=== PATIENT | female | born 1995 | race African-American/Black ===

== ENCOUNTER 2024-03-26 09:25 | Observation (INO) | payer BC, SELFPAY ==
[2024-03-26 11:00] VITALS: BMI 23.3
--- NOTE | 2024-03-26 11:23 | OBADM ---
This patient, Courtney lSade, admitted to the OB room Labor/Delivery/Recovery 108 for observation. Patient/family oriented to hospital policies and general routines including ID bracelet, bed and alarms, visiting hours, pain management, procedures, bathroom and other care routines, personal items, smoking policy, room service/diet, and visiting hours. Patient/Family are encouraged to report perceived risks to care and to ask questions if they do not understand what they are told or what they should do.
--- NOTE | 2024-03-26 11:57 | PC.NURSE ---
1101- Dr. Mendoza called regarding patient's arrival on unit with complaints of moises. Patient moises 2-5 min and reactive NST. SVE unchanged. Orders received to discharge patient. Appt with provider on Wednesday.
--- NOTE | 2024-03-27 11:20 | PM.OBTRLD ---
OB - Triage/Final Diagnosis Visit Information Reason for evaluation: threatened labor Comments/Additional reasons for admission: I have assessed the risk for this patient, Courtney Alaina Oliverais, and determined that she would benefit from observation care.
== END 2024-03-26 11:28 | disposition home or self-care (01) ==
PROVIDERS: Admitting Provider Obstetrics & Gynecology; Visit Provider Obstetrics & Gynecology
DX: O47.1 False labor at or after 37 completed weeks of gestation (principal); Z3A.39 39 weeks gestation of pregnancy
CPT/HCPCS: G0378; G0379

== ENCOUNTER 2024-04-01 19:13 | Inpatient (IN) | payer BC, SELFPAY ==
[2024-04-01] VITALS (60 sets, daily range): BP systolic 67–131; BP diastolic 43–99; PULSE 46–200; TEMP 36.9–37.8; O2SAT 81–100; BMI 24.5
[2024-04-01] MEDS: AMPICILLIN 2 GM/NS 100 ML 2 GM/100 ML BAG IVPB (20:42)
[2024-04-01] MEDS: LACTATED RINGERS 1,000 ML 125 ML IV CONT ×2 (20:42→22:10)
[2024-04-01] MEDS: ACETAMINOPHEN 500 MG TABLET 1000 MG PO (20:43)
[2024-04-01 20:53] LABS: Basophils Percent Auto 0.4 % (0.2-1.2); Eosinophils Percent Auto 0.3 % (0-4.4); Hematocrit 35.2 % (37.0-47.0); Hemoglobin 11.7 g/dL (12.0-15.0); Immature Granulocyte Absolute 0.06 K/mm3 (0.00-0.031); Immature Granulocyte Percent A 0.6 % (0-0.5); Lymphocytes Absolute Auto 2.18 K/mm3 (0.9-3.2); Lymphocytes Percent Auto 21.6 % (18.3-44.2); Mean Corpuscular HGB Conc 33.2 g/dl (32-36); Mean Corpuscular Hemoglobin 27.9 pg (26-34); Mean Corpuscular Volume 83.8 fl (80-100); Mean Platelet Volume 11.9 fl (7.4-10.4); Monocytes Absolute Auto 0.5 K/mm3 (0.1-0.6); Monocytes Percent Auto 5.3 % (2.6-8.5); Neutrophils Absolute Auto 7.3 K/mm3 (1.3-6.7); Neutrophils Percent Auto 71.8 % (45.5-73.1); Platelet Count Result 226 k/mm3 (150-375); Red Cell Distribution Width 13.7 % (11.5-14.5); White Blood Count 10.1 K/mm3 (4.5-10.0)
--- NOTE | 2024-04-01 21:06 | LDADM ---
This patient, Courtney Slade, was admitted to Labor/Delivery/Recovery 104 on 04/01/24 at 19:13. Plans for labor, pain management and were discussed with patient. Patient/family oriented to hospital policies and general routines including ID bracelet, bed and alarms, visiting hours, pain management, procedures, bathroom and other care routines, personal items, smoking policy, room service/diet and guest tray routines, security routines, and visiting hours. Patient/Family are encouraged to report perceived risks to care and to ask questions if they do not understand what they are told or what they should do. See OBIX for further documentation.
[2024-04-01 21:29] LABS: Rapid Plasma Reagin Non-Reactive (NonReactive)
[2024-04-01] MEDS: ONDANSETRON INJ 4 MG/2 ML VIAL IV PUSH (21:35)
[2024-04-01 21:44] LABS: HIV 1/2 Ab P24 Ag Result Negative (Negative)
--- NOTE | 2024-04-01 22:15 | P.PNAN_ITS ---
Anes - Initial Pre Proc Eval Date/Time: 04/01/24 22:15 Surgeon: Gigi Mendoza MD Pre Op Diagnosis: Contractions Patient Data Age: 28 Gender: F Height: Weight: Last Vital Signs Temp 36.9 C 04/01/24 22:08 Pulse 200 H 04/01/24 22:14 BP 114/99 H 04/01/24 22:14 Pulse Ox 100 04/01/24 22:13 O2 Del Method Room Air 04/01/24 21:01 Allergies Allergy/AdvReac Type Severity Reaction Status Date / Time mushroom Allergy Swelling Verified 03/20/24 13:22 Home Medications Medication Instructions Recorded Confirmed Type metoclopramide HCl 10 mg tablet 10 mg PO Q6H PRN nausea and 10/08/23 03/29/24 Rx (Reglan) vomiting #80 tabs vits no.126-ferrous fum 1 tablet PO DAILY #90 tabs 11/04/23 03/29/24 Rx 28 mg iron-folic acid 800 mcg tablet (Classic ) Laboratory Tests 04/01/24 20:40 WBC 10.1 H K/mm3 (4.5-10.0) RBC 4.20 M/mm3 (4.2-5.4) Hgb 11.7 L g/dL (12.0-15.0) Hct 35.2 L % (37.0-47.0) MCV 83.8 fl (80-100) MCH 27.9 pg (26-34) MCHC 33.2 g/dl (32-36) RDW 13.7 % (11.5-14.5) Plt Count 226 k/mm3 (150-375) MPV 11.9 H fl (7.4-10.4) Immature Gran % (Auto) 0.6 H % (0-0.5) Neut % (Auto) 71.8 % (45.5-73.1) Lymph % (Auto) 21.6 % (18.3-44.2) [place] % (Auto) 5.3 % (2.6-8.5) Eos % (Auto) 0.3 % (0-4.4) Baso % (Auto) 0.4 % (0.2-1.2) Lymph # (Auto) 2.18 K/mm3 (0.9-3.2) [place] # (Auto) 0.5 K/mm3 (0.1-0.6) Eos # (Auto) 0.0 K/mm3 (0-0.3) Baso # (Auto) 0.0 K/mm3 (0.0-0.1) Abs Immat Gran (auto) 0.06 H K/mm3 (0.00-0.031) Absolute Neuts (auto) 7.3 H K/mm3 (1.3-6.7) Absolute Nucleated RBC 0.000 K/mm3 (0.0-0.012) Nucleated RBC % 0.0 % (0.0-0.2) RPR Non-reactive (NonReactive) HIV 1&2 Ab/P24 Ag 4thGn Negative (Negative) Blood Type A Positive Antibody Screen Negative Patient hx anesthesia problems: none Family hx anesthesia problems: none Results Review: All pre-operative results and documents have been reviewed as part of the pre- operative evaluation. [facility] Past Medical History Medical History Femur open fracture, left Suppression of menses Surgical History Surgical History Hx of appendectomy Family History Family History Grandparent Diabetes mellitus Hypertension Breast cancer Social History Social History Smoking status: Current every day smoker Tobacco type: e-cigarettes/vaping Second hand tobacco smoke exposure: No Alcohol intake: never Substance use: never Substance use type: marijuana Do You Feel Safe in your Home?: Yes Lack of Transportation: No Lack of Food: Never True Current Housing: I Have Housing Concerned About Future Housing: No Difficulty Paying Gas/Electric Bills: No Difficulty Paying for Meds: No Currently Unemployed: No Education: High School Diploma/GED Difficulty w/ Childcare or Family Care: No Living arrangements: alone Occupation/Education: occupation Gender identity (if verbalized by the patient): Female Spiritual care concerns: No Anes - Eval Final PreProcedure Day of Procedure 04/01/24 22:15 Patient weight: normal Neurological: alert and oriented ASA classification: II Emergent: no Anesthetic plan: proceed Anesthesia type and monitoring: regional epidural and standard monitoring Results Review: All pre-operative results and documents have been reviewed as part of the pre- operative evaluation. Informed Consent: The patient's anesthetic plan and its attendant risks and benefits were discussed with the patient/family/POA. Questions were solicited and answers provided to the satisfaction of the patient/family/POA.
[2024-04-01] MEDS: OXYTOCIN 30 UNITS/NS 500 ML 30 UNITS/500 ML BAG IV CONT (22:57)
[2024-04-01] MEDS: PHENYLEPHRINE 1,000 MCG/10 ML SYRINGE 100 MCG IV PUSH (23:10)
[2024-04-02] VITALS (363 sets, daily range): BP systolic 84–207; BP diastolic 28–163; PULSE 50–150; RESP 18; TEMP 36.3–37.1; O2SAT 78–100
[2024-04-02] MEDS: AMPICILLIN 1 GM/NS 50 ML 1 GM/50 ML BAG IVPB ×6 (00:07→19:27)
[2024-04-02] MEDS: FAMOTIDINE 20 MG/2 ML VIAL IV PUSH (01:21)
--- NOTE | 2024-04-02 01:40 | PC.NURSE ---
Daylight Savings Time For Daylight Savings Time Ending in the Fall - Clocks are moved back. For Daylight Savings Time Beginning in the Spring - Clocks are moved ahead. For [facility], the time of change occurs at 0200 hrs. Time is taken from the oil prospecting observer. This entry on the patient's chart recognizes the change in time reflected during documentation. Example: 2 entries for vital signs may be charted for 0200 hrs.
[2024-04-02] MEDS: diphenhydrAMINE HCl INJ 50 MG/ML VIAL 25 MG IV PUSH ×3 (02:18→15:49)
[2024-04-02] MEDS: LACTATED RINGERS 1,000 ML 125 ML IV CONT ×2 (02:43→11:20)
[2024-04-02] MEDS: CALCIUM CARBONATE (TUMS) 500 MG (200 MG ELEMENTAL) PO (07:07)
[2024-04-02] MEDS: LANOLIN (LANSINOH) 7.5 GM CREAM 1 APPLIC (07:18)
--- NOTE | 2024-04-02 08:22 | P.HP_ITS ---
H&P: HPI History of Present Illness Date/Time: 04/02/24 08:22 Chief Complaint: Contractions Narrative: She presented initially with contractions. Labor was ruled out. She did mention ? leaking for a few days and positive ROM plus. PNC uncomplicated. Neg GBS. Initial temp 100.1 Review of Systems Review of Systems: All systems reviewed & are unremarkable except as noted in HPI and below Constitutional: Constitutional: Reports no additional constitutional complaints and Denies headache(s) Eyes: Eyes: Denies spots in vision ENT: Reports system reviewed and no additional complaints, except as documented and Denies headache(s) Cardiovascular: Cardiovascular: Denies chest pain and Denies dyspnea Respiratory: Respiratory: Denies dyspnea Gastrointestinal: Gastrointestinal: Reports no additional gastrointestinal complaints Genitourinary: Genitourinary: Reports amenorrhea Musculoskeletal: Musculoskeletal: Reports no additional musculoskeletal complaints Integumentary/Breasts: Skin/Breast: Denies breast mass and Denies rash Neurologic: Denies headache(s) Psychiatric: Psychiatric: Reports no additional psychiatric complaints [facility] Past Medical History Medical History Femur open fracture, left Suppression of menses Surgical History Surgical History Hx of appendectomy Family History Family History Grandparent Diabetes mellitus Hypertension Breast cancer Social History Social History Smoking status: Current every day smoker Tobacco type: e-cigarettes/vaping Second hand tobacco smoke exposure: No Alcohol intake: never Substance use: never Substance use type: marijuana Do You Feel Safe in your Home?: Yes Lack of Transportation: No Lack of Food: Never True Current Housing: I Have Housing Concerned About Future Housing: No Difficulty Paying Gas/Electric Bills: No Difficulty Paying for Meds: No Currently Unemployed: No Education: High School Diploma/GED Difficulty w/ Childcare or Family Care: No Living arrangements: alone Occupation/Education: occupation Gender identity (if verbalized by the patient): Female Spiritual care concerns: No Meds Home Medications and Allergies Home Medications Medication Instructions Recorded Confirmed Type metoclopramide HCl 10 mg tablet 10 mg PO Q6H PRN nausea and 10/08/23 04/01/24 Rx (Reglan) vomiting #80 tabs vits no.126-ferrous fum 1 tablet PO DAILY #90 tabs 11/04/23 04/01/24 Rx 28 mg iron-folic acid 800 mcg tablet (Classic ) Allergies Allergy/AdvReac Type Severity Reaction Status Date / Time mushroom Allergy Swelling Verified 03/20/24 13:22 Vital Signs Vital Signs - 24 hr 04/01/24 19:31 04/01/24 20:02 04/01/24 21:40 Temperature Pulse Rate 91 82 78 Blood Pressure 112/72 84/50 L 118/77 Pulse Oximetry Oxygen Delivery 04/01/24 21:43 04/01/24 21:46 04/01/24 21:47 Temperature Pulse Rate 110 H Blood Pressure 131/90 Pulse Oximetry 96 100 Oxygen Delivery 04/01/24 21:47 04/01/24 21:47 04/01/24 21:47 Temperature Pulse Rate Blood Pressure Pulse Oximetry 100 100 100 Oxygen Delivery 04/01/24 21:48 04/01/24 21:48 04/01/24 21:53 Temperature Pulse Rate 87 Blood Pressure 121/82 Pulse Oximetry 100 100 100 Oxygen Delivery 04/01/24 21:54 04/01/24 21:56 04/01/24 21:58 Temperature Pulse Rate 107 H 109 H 84 Blood Pressure 112/83 115/68 126/80 Pulse Oximetry 100 Oxygen Delivery 04/01/24 22:01 04/01/24 22:03 04/01/24 22:06 Temperature Pulse Rate 94 88 68 Blood Pressure 110/72 107/66 107/69 Pulse Oximetry 100 Oxygen Delivery 04/01/24 22:08 04/01/24 22:11 04/01/24 22:13 Temperature 98.4 F Pulse Rate 73 71 Blood Pressure 112/61 108/68 Pulse Oximetry 100 100 Oxygen Delivery 04/01/24 22:14 04/01/24 22:16 04/01/24 22:18 Temperature Pulse Rate 200 H 82 88 Blood Pressure 114/99 H 112/66 82/67 L Pulse Oximetry 100 Oxygen Delivery 04/01/24 22:20 04/01/24 22:23 04/01/24 22:26 Temperature Pulse Rate 89 71 74 Blood Pressure 106/60 112/68 104/58 L Pulse Oximetry 100 Oxygen Delivery 04/01/24 22:27 04/01/24 22:28 04/01/24 22:31 Temperature Pulse Rate 73 73 Blood Pressure 106/65 107/69 Pulse Oximetry 100 Oxygen Delivery 04/01/24 22:32 04/01/24 22:33 04/01/24 22:35 Temperature Pulse Rate 68 Blood Pressure 110/77 Pulse Oximetry 100 100 Oxygen Delivery 04/01/24 22:36 04/01/24 22:38 04/01/24 22:40 Temperature Pulse Rate 78 110 H 90 Blood Pressure 110/55 L 103/64 97/67 L Pulse Oximetry 97 Oxygen Delivery 04/01/24 22:43 04/01/24 22:45 04/01/24 22:46 Temperature Pulse Rate 70 85 Blood Pressure 112/66 103/85 Pulse Oximetry 100 Oxygen Delivery 04/01/24 22:48 04/01/24 22:50 04/01/24 22:55 Temperature Pulse Rate 65 Blood Pressure 101/60 Pulse Oximetry 100 81 L Oxygen Delivery 04/01/24 23:00 04/01/24 23:01 04/01/24 23:04 Temperature Pulse Rate 90 137 H Blood Pressure 67/43 L 84/63 L Pulse Oximetry 100 Oxygen Delivery 04/01/24 23:05 04/01/24 23:10 04/01/24 23:12 Temperature Pulse Rate 58 L Blood Pressure 126/79 Pulse Oximetry 99 100 Oxygen Delivery 04/01/24 23:14 04/01/24 23:19 04/01/24 23:24 Temperature Pulse Rate Blood Pressure Pulse Oximetry 99 100 100 Oxygen Delivery 04/01/24 23:29 04/01/24 23:30 04/01/24 23:30 Temperature Pulse Rate Blood Pressure Pulse Oximetry 82 L 100 100 Oxygen Delivery 04/01/24 23:31 04/01/24 23:35 04/01/24 23:40 Temperature Pulse Rate 86 Blood Pressure 110/66 Pulse Oximetry 100 100 Oxygen Delivery 04/01/24 23:40 04/01/24 23:41 04/01/24 23:46 Temperature Pulse Rate 126 H Blood Pressure 90/70 L Pulse Oximetry 100 100 96 Oxygen Delivery 04/01/24 23:50 04/01/24 23:53 04/01/24 23:54 Temperature Pulse Rate Blood Pressure Pulse Oximetry 100 100 98 Oxygen Delivery 04/01/24 23:54 04/01/24 23:59 04/02/24 00:01 Temperature Pulse Rate 75 Blood Pressure 102/54 L Pulse Oximetry 96 100 Oxygen Delivery 04/02/24 00:04 04/02/24 00:09 04/02/24 00:13 Temperature Pulse Rate Blood Pressure Pulse Oximetry 100 100 93 Oxygen Delivery 04/02/24 00:16 04/02/24 00:18 04/02/24 00:23 Temperature Pulse Rate 72 Blood Pressure 102/68 Pulse Oximetry 100 100 Oxygen Delivery 04/02/24 00:28 04/02/24 00:31 04/02/24 00:33 Temperature Pulse Rate 74 Blood Pressure 103/71 Pulse Oximetry 100 100 Oxygen Delivery 04/02/24 00:38 04/02/24 00:43 04/02/24 00:44 Temperature Pulse Rate Blood Pressure Pulse Oximetry 100 100 99 Oxygen Delivery 04/02/24 00:46 04/02/24 00:49 04/02/24 00:54 Temperature Pulse Rate 74 Blood Pressure 98/64 L Pulse Oximetry 100 100 Oxygen Delivery 04/02/24 00:59 04/02/24 01:01 INDUCTION MACHINE OPERATOR 04/02/24 01:01 INDUCTION MACHINE OPERATOR Temperature Pulse Rate 66 Blood Pressure 108/64 Pulse Oximetry 100 Oxygen Delivery 04/02/24 01:04 INDUCTION MACHINE OPERATOR 04/02/24 01:09 INDUCTION MACHINE OPERATOR 04/02/24 01:11 INDUCTION MACHINE OPERATOR Temperature Pulse Rate Blood Pressure Pulse Oximetry 100 99 100 Oxygen Delivery 04/02/24 01:16 INDUCTION MACHINE OPERATOR 04/02/24 01:16 INDUCTION MACHINE OPERATOR 04/02/24 01:16 INDUCTION MACHINE OPERATOR Temperature Pulse Rate 72 Blood Pressure 107/67 Pulse Oximetry 100 Oxygen Delivery 04/02/24 01:21 INDUCTION MACHINE OPERATOR 04/02/24 00:00 04/02/24 01:26 INDUCTION MACHINE OPERATOR Temperature 98.6 F Pulse Rate Blood Pressure Pulse Oximetry 99 100 Oxygen Delivery 04/02/24 01:31 INDUCTION MACHINE OPERATOR 04/02/24 01:31 INDUCTION MACHINE OPERATOR 04/02/24 01:31 INDUCTION MACHINE OPERATOR Temperature Pulse Rate 64 Blood Pressure 102/69 Pulse Oximetry 100 Oxygen Delivery 04/02/24 01:31 INDUCTION MACHINE OPERATOR 04/02/24 01:32 INDUCTION MACHINE OPERATOR 04/02/24 01:33 INDUCTION MACHINE OPERATOR Temperature Pulse Rate Blood Pressure Pulse Oximetry 98 100 94 Oxygen Delivery 04/02/24 01:33 INDUCTION MACHINE OPERATOR 04/02/24 01:38 INDUCTION MACHINE OPERATOR 04/02/24 01:41 INDUCTION MACHINE OPERATOR Temperature Pulse Rate Blood Pressure Pulse Oximetry 97 100 100 Oxygen Delivery 04/02/24 01:46 INDUCTION MACHINE OPERATOR 04/02/24 01:46 INDUCTION MACHINE OPERATOR 04/02/24 01:46 INDUCTION MACHINE OPERATOR Temperature Pulse Rate 79 Blood Pressure 100/64 Pulse Oximetry 98 Oxygen Delivery 04/02/24 01:51 INDUCTION MACHINE OPERATOR 04/02/24 01:56 INDUCTION MACHINE OPERATOR 04/02/24 01:00 INDUCTION MACHINE OPERATOR Temperature Pulse Rate 74 Blood Pressure 102/66 Pulse Oximetry 97 96 Oxygen Delivery 04/02/24 01:01 INDUCTION MACHINE OPERATOR 04/02/24 01:06 INDUCTION MACHINE OPERATOR 04/02/24 01:11 INDUCTION MACHINE OPERATOR Temperature Pulse Rate Blood Pressure Pulse Oximetry 96 96 96 Oxygen Delivery 04/02/24 01:16 INDUCTION MACHINE OPERATOR 04/02/24 01:18 INDUCTION MACHINE OPERATOR 04/02/24 01:23 INDUCTION MACHINE OPERATOR Temperature Pulse Rate 85 Blood Pressure 111/60 Pulse Oximetry 100 100 100 Oxygen Delivery 04/02/24 01:28 INDUCTION MACHINE OPERATOR 04/02/24 01:33 INDUCTION MACHINE OPERATOR 04/02/24 01:38 INDUCTION MACHINE OPERATOR Temperature Pulse Rate Blood Pressure Pulse Oximetry 100 100 100 Oxygen Delivery 04/02/24 01:40 INDUCTION MACHINE OPERATOR 04/02/24 01:43 INDUCTION MACHINE OPERATOR 04/02/24 01:45 INDUCTION MACHINE OPERATOR Temperature 98.8 F Pulse Rate Blood Pressure Pulse Oximetry 100 100 Oxygen Delivery 04/02/24 01:46 INDUCTION MACHINE OPERATOR 04/02/24 01:49 INDUCTION MACHINE OPERATOR 04/02/24 01:49 INDUCTION MACHINE OPERATOR Temperature Pulse Rate 86 Blood Pressure 108/67 Pulse Oximetry 85 L 84 L Oxygen Delivery 04/02/24 01:49 INDUCTION MACHINE OPERATOR 04/02/24 02:00 04/02/24 02:01 Temperature Pulse Rate 106 H 90 Blood Pressure 94/75 L 84/62 L Pulse Oximetry 83 L Oxygen Delivery 04/02/24 02:02 04/02/24 02:05 04/02/24 02:14 Temperature Pulse Rate 81 68 72 Blood Pressure 103/68 104/66 106/75 Pulse Oximetry Oxygen Delivery 04/02/24 02:16 04/02/24 02:22 04/02/24 02:26 Temperature Pulse Rate 92 71 Blood Pressure 110/85 119/85 Pulse Oximetry 100 Oxygen Delivery 04/02/24 02:31 04/02/24 02:36 04/02/24 02:41 Temperature Pulse Rate 73 Blood Pressure 118/68 Pulse Oximetry 100 99 100 Oxygen Delivery 04/02/24 02:46 04/02/24 02:51 04/02/24 02:56 Temperature Pulse Rate 67 Blood Pressure 118/69 Pulse Oximetry 100 96 97 Oxygen Delivery 04/02/24 03:01 04/02/24 03:06 04/02/24 03:11 Temperature Pulse Rate 74 Blood Pressure 110/74 Pulse Oximetry 99 99 99 Oxygen Delivery 04/02/24 03:16 04/02/24 03:21 04/02/24 03:26 Temperature Pulse Rate 84 Blood Pressure 96/60 L Pulse Oximetry 99 100 99 Oxygen Delivery 04/02/24 03:30 04/02/24 03:31 04/02/24 03:36 Temperature Pulse Rate 84 Blood Pressure 92/58 L Pulse Oximetry 100 99 Oxygen Delivery 04/02/24 03:41 04/02/24 03:46 04/02/24 03:51 Temperature Pulse Rate 87 Blood Pressure 92/56 L Pulse Oximetry 98 97 100 Oxygen Delivery 04/02/24 03:56 04/02/24 04:00 04/02/24 04:01 Temperature 98.8 F Pulse Rate 69 Blood Pressure 113/66 Pulse Oximetry 99 100 Oxygen Delivery 04/02/24 04:16 04/02/24 04:19 04/02/24 04:24 Temperature Pulse Rate 82 Blood Pressure 89/60 L Pulse Oximetry 82 L 100 Oxygen Delivery 04/02/24 04:24 04/02/24 04:30 04/02/24 04:45 Temperature Pulse Rate 84 81 Blood Pressure 95/63 L 95/64 L Pulse Oximetry 100 Oxygen Delivery 04/02/24 05:01 04/02/24 05:05 04/02/24 05:10 Temperature Pulse Rate 96 Blood Pressure 120/69 Pulse Oximetry 99 100 Oxygen Delivery 04/02/24 05:15 04/02/24 05:16 04/02/24 05:20 Temperature Pulse Rate 92 Blood Pressure 106/71 Pulse Oximetry 99 100 Oxygen Delivery 04/02/24 05:25 04/02/24 05:30 04/02/24 05:35 Temperature Pulse Rate 80 Blood Pressure 107/69 Pulse Oximetry 100 100 100 Oxygen Delivery 04/02/24 05:38 04/02/24 05:43 04/02/24 05:46 Temperature Pulse Rate 76 Blood Pressure 112/77 Pulse Oximetry 100 100 Oxygen Delivery 04/02/24 05:48 04/02/24 05:53 04/02/24 05:45 Temperature 98.3 F Pulse Rate Blood Pressure Pulse Oximetry 97 98 Oxygen Delivery 04/02/24 05:58 04/02/24 06:01 04/02/24 06:03 Temperature Pulse Rate 78 Blood Pressure 107/64 Pulse Oximetry 97 96 Oxygen Delivery 04/02/24 06:08 04/02/24 06:13 04/02/24 06:16 Temperature Pulse Rate 91 Blood Pressure 112/86 Pulse Oximetry 99 97 Oxygen Delivery 04/02/24 06:18 04/02/24 06:23 04/02/24 06:28 Temperature Pulse Rate Blood Pressure Pulse Oximetry 98 100 97 Oxygen Delivery 04/02/24 06:31 04/02/24 06:33 04/02/24 06:38 Temperature Pulse Rate 82 Blood Pressure 104/69 Pulse Oximetry 97 98 Oxygen Delivery 04/02/24 06:43 04/02/24 06:45 04/02/24 06:48 Temperature Pulse Rate 74 Blood Pressure 113/78 Pulse Oximetry 98 100 Oxygen Delivery 04/02/24 06:53 04/02/24 06:58 04/02/24 07:01 Temperature Pulse Rate 88 Blood Pressure 122/81 Pulse Oximetry 100 100 Oxygen Delivery 04/02/24 07:03 04/02/24 07:08 04/02/24 07:13 Temperature Pulse Rate Blood Pressure Pulse Oximetry 100 100 100 Oxygen Delivery 04/02/24 07:17 04/02/24 07:18 04/02/24 07:19 Temperature 98.1 F Pulse Rate 88 Blood Pressure 115/63 Pulse Oximetry 100 Oxygen Delivery 04/02/24 07:23 04/02/24 07:28 04/02/24 07:30 Temperature Pulse Rate 79 Blood Pressure 111/80 Pulse Oximetry 100 100 Oxygen Delivery 04/02/24 07:33 04/02/24 07:38 04/02/24 07:43 Temperature Pulse Rate Blood Pressure Pulse Oximetry 100 100 100 Oxygen Delivery 04/02/24 07:46 04/02/24 07:48 04/02/24 07:53 Temperature Pulse Rate 80 Blood Pressure 112/78 Pulse Oximetry 100 100 Oxygen Delivery 04/02/24 07:58 04/02/24 08:03 04/02/24 08:08 Temperature Pulse Rate Blood Pressure Pulse Oximetry 100 100 100 Oxygen Delivery 04/02/24 08:13 04/02/24 08:15 04/02/24 08:18 Temperature Pulse Rate 71 Blood Pressure 120/78 Pulse Oximetry 100 100 Oxygen Delivery 04/01/24 20:43 04/01/24 21:01 04/01/24 22:19 Temperature 100.1 F H Pulse Rate 88 Blood Pressure 82/67 L Pulse Oximetry Oxygen Delivery Room Air Exam Const: General: no acute distress Eyes: General: appearance normal, both eyes and all related structures Resp: Effort & Inspection: normal respiratory effort Cardio: Rate: regular rate GI: Other: Gravid no fundal tenderness no right upper quadrant pain Skin: General skin exam: no rashes or lesions noted Neuro: Cognition (Neuro): normal cognition Extrem: General: normal to inspection Psych: Mental Status: mental status grossly normal H&P: Results Labs Labs: Short CBC 04/01/24 Range/Units 20:40 WBC 10.1 H (4.5-10.0) K/mm3 Hgb 11.7 L (12.0-15.0) g/dL Hct 35.2 L (37.0-47.0) % Plt Count 226 (150-375) k/mm3 Assessment and Plan Assessment and plan (1) Prolonged rupture of membranes: Code(s): O42.90 - Premature rupture of membranes, unspecified as to length of time between rupture and onset of labor, unspecified weeks of gestation Status: Acute Assessment and Plan: 1. No signs of chorio. Admit. 2. Pitocin augmentation. 3. GBS prophylaxis with Ampicillin.
--- NOTE | 2024-04-02 08:22 | WPDHPUPDATE1 ---
History and Physical Update Update Date/Time: 04/02/24 08:22 History and Physical has been reviewed, including an updated exam of the patient. There are NO changes in the patient's condition. Risks, benefits, and alternatives have been discussed and questions answered. Patient agrees to proceed with procedure.
--- NOTE | 2024-04-02 08:24 | PM.OBPNVD ---
OB - PN: Subj Subjective Date/time seen: 04/02/24 08:24 Interval history: fht 120, cat 2, cervix //-2, ctx q 3 off Pit. Will restart Pit. OB - PN: Obj Data Labs 04/01/24 20:40 Labs: Laboratory Results - last 24 hr 04/01/24 20:40 WBC 10.1 H RBC 4.20 Hgb 11.7 L Hct 35.2 L MCV 83.8 MCH 27.9 MCHC 33.2 RDW 13.7 Plt Count 226 MPV 11.9 H Immature Gran % (Auto) 0.6 H Neut % (Auto) 71.8 Lymph % (Auto) 21.6 [place] % (Auto) 5.3 Eos % (Auto) 0.3 Baso % (Auto) 0.4 Lymph # (Auto) 2.18 [place] # (Auto) 0.5 Eos # (Auto) 0.0 Baso # (Auto) 0.0 Abs Immat Gran (auto) 0.06 H Absolute Neuts (auto) 7.3 H Absolute Nucleated RBC 0.000 Nucleated RBC % 0.0 RPR Non-reactive HIV 1&2 Ab/P24 Ag 4thGn Negative Blood Type A Positive Antibody Screen Negative OB - PN A/P Time Spent With Patient Time: Total time spent is greater than 50% in coordination of care (as documented) at patient's floor/unit and/or counseling patient:
[2024-04-02] MEDS: LORATADINE 10 MG TABLET PO (09:12)
[2024-04-02] MEDS: ONDANSETRON INJ 4 MG/2 ML VIAL IV PUSH (13:24)
[2024-04-02] MEDS: fentaNYL CITRATE INJ (*CRX) 100 MCG/2 ML VIAL 50 MCG IV PUSH (14:49)
--- NOTE | 2024-04-02 18:43 | P.PNOB_ITS ---
OB - PN: Subj Subjective Date/time seen: 04/02/24 18:43 Interval history: 125, cat 2, cervix /+1 with anterior swollen, she just received third epidural and her pain control is much better it has been. Urine bloody, she is getting urine output, cath has been flushed. Continue pitocin. OB - PN: Obj Data Labs 04/01/24 20:40 Labs: Laboratory Results - last 24 hr 04/01/24 20:40 WBC 10.1 H RBC 4.20 Hgb 11.7 L Hct 35.2 L MCV 83.8 MCH 27.9 MCHC 33.2 RDW 13.7 Plt Count 226 MPV 11.9 H Immature Gran % (Auto) 0.6 H Neut % (Auto) 71.8 Lymph % (Auto) 21.6 [place] % (Auto) 5.3 Eos % (Auto) 0.3 Baso % (Auto) 0.4 Lymph # (Auto) 2.18 [place] # (Auto) 0.5 Eos # (Auto) 0.0 Baso # (Auto) 0.0 Abs Immat Gran (auto) 0.06 H Absolute Neuts (auto) 7.3 H Absolute Nucleated RBC 0.000 Nucleated RBC % 0.0 RPR Non-reactive HIV 1&2 Ab/P24 Ag 4thGn Negative Blood Type A Positive Antibody Screen Negative OB - PN A/P Time Spent With Patient Time: Total time spent is greater than 50% in coordination of care (as documented) at patient's floor/unit and/or counseling patient:
[2024-04-02] MEDS: DEXTROSE 5%/LACTATED RINGERS 1,000 ML 100 ML IV CONT (19:27)
[2024-04-02] MEDS: LIDOCAINE HCL 1% LOCAL INJ 20 ML VIAL (20:30)
[2024-04-02] MEDS: fentaNYL CITRATE INJ (*CRX) 100 MCG/2 ML VIAL 75 MCG IV PUSH (20:38)
[2024-04-02] MEDS: OXYTOCIN 30 UNITS/NS 500 ML 30 UNITS/500 ML BAG 125 UNITS IV CONT (20:39)
--- NOTE | 2024-04-02 20:49 | P.PCNOB_ITS ---
OB - Vaginal Delivery Note Procedure Delivery date: 04/02/24 Intrapartal Events: Other (prolonged rupture of membranes) Delivery monitor: External FHT, External Uterine and Internal Uterine Route of delivery: Episiotomy description: None Laceration Description: Labial Delivery repair: vicryl (3.0 vicryl) Specimen: Yes (placenta and cord) Quantitative Blood Loss (ml): 300 Anesthesia type: Epidural (x3) Disposition: Floor Complications: No immediate complications Narrative: She was admitted with diagnosis of PROM. Pitocin augmentation and GBS prophylaxis with ampicillin started. She had low grade temp of 100.1 on ad mission she was given Tylenol. She did not have a fever at any time in labor. No signs of chorioamnionitis during labor. She has slow progression of into active labor. Pitocin was discontinued x 2 for decelerations which resolved.After 4 cm, she had frequent episodes of pushing when did not have adequate pain control. Epidural was replaced several times. After last placement, she did dilated to 8 and had swollen anterior cervix. She did get adequate pain control for a period. She then started uncontrollable pushing. Cervix was 9 with anterior lip. She continued to push and anterior cervix was reduced. She was complete and then delivered male infant. Nose and mouth suctioned at perineum. Meconium noted. Peds made aware. Tight nuchal cord surgically reduced. The anterior shoulder and then the rest of the infant was delivered. Infant crying and placed on maternal abdomen and then taken to warmer. Pitocin started. Placenta delivered spontaneous and intact. She sustained bilateral inner inferior labial stretch tear. Inspection of cervix showed small ooze at posterior cervix, no laceration, ooze improved with pressure. Vag packed placed. She was given Fentanyl for analgesia. Small area at left inferior required figure of eight stich with 0 vicryl. Silver nitrate was applied to area superior. Hemostasis noted. Baby Date of : 04/02/24 Time of : 20:13 Gestational Age by Date: 40 gender: Male Weight (pounds): 6 Weight (ounces): 11 presentation: vertex position: Left Occiput Posterior Placenta delivery description: Spontaneous Cord Vessel Description: 3 Vessels, Tight, Reduced (surgically) and Clamped/Cut score one minute: 7 score five minutes: 9
[2024-04-02] MEDS: IBUPROFEN 600 MG TABLET PO (21:14)
[2024-04-02] MEDS: ACETAMINOPHEN 325 MG TABLET 650 MG PO (21:15)
--- NOTE | 2024-04-02 22:12 | PC.NURSE ---
Call received from Dr. Anmol whatley for UDS screen.
--- NOTE | 2024-04-02 22:54 | OBPPTRN ---
Patient transferred to post care into room #111 via wheelchair. Support person present. Oriented to unit, room, information board, rooming in, admission packet and security measures. Patient verbalizes understanding.
--- NOTE | 2024-04-02 23:09 | PC.NURSE ---
Urine drug screen sent down to Lab was collected on admission 04/01/24 @ [id number] by Quincy MCKNIGHT
[2024-04-02 23:16] LABS: Amphetamine Screen Urine Negative (Negative); Barbiturate Screen Urine Negative (Negative); Benzodiazepines Screen Urine Negative (Negative); Cannabinoid Screen Urine Positive (Negative); Cocaine Screen Urine Negative (Negative); Methadone Screen Urine Negative (Negative); Opiate Screen Urine Negative (Negative); Phencyclidine Screen Urine Negative (Negative)
--- NOTE | 2024-04-02 23:23 | PC.NURSE ---
Call reported to Dr. Corea, UDS reported. No new orders at this time.
[2024-04-03 03:41] VITALS: BP 105/60; PULSE 84
[2024-04-03 04:23] LABS: Hematocrit 26.8 % (37.0-47.0); Hemoglobin 9.1 g/dL (12.0-15.0)
[2024-04-03 04:28] VITALS: BP 105/60; PULSE 84; RESP 20; TEMP 36.9; O2SAT 100
[2024-04-03 07:35] VITALS: BP 96/63; PULSE 83; RESP 16; TEMP 36.9; O2SAT 100
[2024-04-03] MEDS: MULTIVIT/MIN/PREN/FOL AC/IRON TABLET 1 TAB PO (08:04)
[2024-04-03] MEDS: IBUPROFEN 600 MG TABLET PO (08:04)
[2024-04-03] MEDS: POLYSACCHARIDE IRON COMPLEX 150 MG CAPSULE PO ×2 (08:04→16:30)
--- NOTE | 2024-04-03 08:18 | PC.NURSE ---
Patient transferred from room 111 to post room #291 via wheelchair. Support person present. Oriented to unit, room, information board, rooming in, admission packet and security measures. Patient verbalizes understanding.
--- NOTE | 2024-04-03 09:48 | P.PNOB_ITS ---
OB - PN: Subj Subjective Date/time seen: 04/03/24 09:48 Narrative: PPD#1 Courtney reports doing well today. 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 Her pain is controlled. She is tolerating regular diet, voiding, passing gas, and ambulating without issues. She is _ feeding. She would like her son circumcised. OB - PN: Obj Data Labs 04/03/24 03:46 Labs: Laboratory Results - last 24 hr 04/02/24 04/03/24 22:46 03:46 Hgb 9.1 L Hct 26.8 L Urine Opiates Screen Negative Urine Methadone Screen Negative Ur Barbiturates Screen Negative Ur Phencyclidine Scrn Negative Ur Amphetamine Screen Negative U Benzodiazepines Scrn Negative Urine Cocaine Screen Negative U Cannabinoids Screen Positive A OB - PN A/P Assessment and Plan (1) Normal vaginal delivery of first : Code(s): O80 - Encounter for full-term uncomplicated delivery Status: Acute Plan day: 1 Plan: routine care Comments: - PO pain meds - Regular diet - Ambulation and hydration encouraged Time Spent With Patient Time: Total time spent is greater than 50% in coordination of care (as documented) at patient's floor/unit and/or counseling patient: Review of Systems Constitutional: Constitutional: Denies chills, Denies fever(s) and Denies headache(s) Eyes: Eyes: Denies change in vision ENT: Denies dizziness and Denies headache(s) Cardiovascular: Cardiovascular: Denies chest pain, Denies palpitations and Denies dyspnea Respiratory: Respiratory: Denies cough and Denies dyspnea Gastrointestinal: Gastrointestinal: Denies nausea and Denies vomiting Neurologic: Denies dizziness and Denies headache(s) Endocrine: Endocrine: Denies palpitations Exam Const: General: cooperative, comfortable and no acute distress Orientation/consciousness: patient oriented x3 Resp: Effort & Inspection: normal respiratory effort Auscultation: clear to auscultation bilaterally Cardio: Rate: regular rate GI: Inspection: non-distended GI Palp: No abdominal tenderness and Yes Soft to palpation Auscultation: normal bowel sounds : Other: fundus firm Skin: General skin exam: normal color Neuro: General: patient oriented x3 Extrem: General: normal to inspection Psych: Appearance: grossly normal Affect: normal affect Attitude: cooperative
--- NOTE | 2024-04-03 10:18 | WPDANLDPN2 ---
Anes-Prog Note L&D Date/Time: 04/03/24 10:18 Neuro status: Neuro function grossly intact. Vital Signs: Last Vital Signs Temp 36.9 C 04/03/24 07:35 Pulse 83 04/03/24 07:35 Resp 16 04/03/24 07:35 BP 96/63 L 04/03/24 07:35 Pulse Ox 100 04/03/24 07:35 O2 Del Method Room Air 04/01/24 21:01 Pain score (VAS): 2 I/O: Intake & Output 04/02/24 04/03/24 04/03/24 23:59 07:59 15:59 Intake Total 1550 Output Total 575 Balance 975 Patient feedback: Patient satisfied with anesthetic care.
--- NOTE | 2024-04-03 11:00 | PC.NURSE ---
Introductions were made, then consulted with patient to assess needs related to . Discussed with mother that services are available to her while she is here and she can call out at feeding time for assistance. Resources provided for inpatient and outpatient services with the feeding sheet, mom/baby guide and name/number written on the communication board. Mother voiced understanding of information but was distracted by her cell phone and may need reeducated about available services. Patient states she will call if there is a request for assistance. Reported to the Primary RN.
[2024-04-03 12:19] VITALS: BP 103/67; PULSE 83; RESP 16; TEMP 36.2; O2SAT 100
--- NOTE | 2024-04-03 16:30 | PC.NURSE ---
Mother called out for assistance. When entering the room, mother was not attempting to feed baby and a visitor was preparing to give a bottle. Inquired if mom still desired to breastfeed and she said yes. Mom handles baby well and he latched to the right breast in cross cradle hold. Mom knows how to hold her breast but needed a little assistance with positioning baby. He would latch and suck a few times and come off the breast. He was rooting and trying to find the nipple throughout the whole feeding. Educated mom about colostrum, feeding duration, and signs of effective feeding. We discussed that newborns fall asleep easily in the first 24 hours of life. Encouraged mom to pump during feedings when she doesn't breastfeed to help protect her milk supply. She has a pump at home but requests a hospital pump to use now. Breast pump instructions given including cleaning, care, usage, that there should be no pain, pumping schedule for milk production, collection, and storage of human milk. Patient was assessed for correct placement, flange size (24mm), to pump for comfort and nipple stretching/stimulation for adequate milk production every 3 hours (8 times in 24 hours) 1-2 times at night.?Mother voiced understanding of the education shared along with mom/baby guide for additional resource information. Reported to the Primary RN.
[2024-04-03 20:00] VITALS: BP 100/59; PULSE 77; RESP 20; TEMP 36.4; O2SAT 97
[2024-04-04 07:15] VITALS: BP 122/75; PULSE 62; RESP 16; TEMP 36.4; O2SAT 100
--- NOTE | 2024-04-04 08:20 | PC.NURSE ---
Introductions were made, then consulted with patient to assess needs related to . Mother is distracted by her phone but declines any need for assistance. She has bottle fed overnight and hasn't pumped regularly. has a 7% weight loss and the tank carpenter is ordering supplementation at every feeding. Resources provided for inpatient and outpatient services with the feeding sheet, mom/baby guide and name/number written on the communication board. Mother voiced understanding of information and will call if there is a request for assistance. Reported to the Primary RN.
--- NOTE | 2024-04-04 08:54 | PM.OBDSVD ---
DS: Admitting Diagnosis Discharge Date [id number] Admitting Diagnosis DS: Discharge Diagnosis Discharge Diagnosis (1) , delivered: Code(s): O80 - Encounter for full-term uncomplicated delivery Status: Acute OB - DS: Summary OB Procedures : None OB Procedures Intrapartum: Spontaneous Vag Delivery OB Procedures: : None Peripartum Data Laceration Description: Labial Episiotomy description: None Time Spent with Patient Time attestation: Total time spent providing and/or coordinating discharge services: DS: Data Data Completed and Pending Pending studies at discharge: Pending at discharge 04/02/24 22:23 Surgical [PTH] Routine Discharge Plan Discharge Discharging Clinician: Gigi Mendoza Patient Disposition: Home, Self-Care Activity: pelvic rest Diet: as tolerated Patient Instructions: Antibiotic Form Stand Alone Forms: General Discharge Information Follow-up/Referrals: Gigi Mendoza MD [Physician] - 3 Weeks Discharge Medications: New ibuprofen 600 mg Tablet 600 mg PO Q6H PRN (Reason: Cramping) Qty: 30 0RF Continued Classic 28 mg iron- 800 mcg tablet 1 tablet PO DAILY Qty: 90 2RF metoclopramide HCl [Reglan] 10 mg tablet 10 mg PO Q6H PRN (Reason: nausea and vomiting) Qty: 80 1RF Date of admission: 04/01/24 19:13 Primary Care Provider: UNKNOWN,DOCTOR Admitting Provider: Gigi Mendoza Attending physician on admission: Gigi Mendoza Condition: Stable
[2024-04-04] MEDS: MULTIVIT/MIN/PREN/FOL AC/IRON TABLET 1 TAB PO (10:01)
[2024-04-04] MEDS: POLYSACCHARIDE IRON COMPLEX 150 MG CAPSULE PO (10:01)
--- NOTE | 2024-04-04 11:50 | PC.NURSE ---
Mother called out for assistance waking baby to feed. He was circumcised this morning. She had pumped 5ml of breast milk at the last feeding so we gave that first. Baby took it well and then was rooting so we tried to latch to the right breast in cross cradle. Baby latched and sucked a few times before coming off the breast. We tried for another 5 minutes or so with some off and on sucks and then mom was ready to move on. She will give the bottle with formula and will pump again for the next feeding. Reported to primary RN.
[2024-04-04] MEDS: ACETAMINOPHEN 325 MG TABLET 650 MG PO (12:56)
[2024-04-04] MEDS: IBUPROFEN 600 MG TABLET PO (12:57)
--- NOTE | 2024-04-04 15:00 | PC.NURSE ---
Consulted with mother concerning needs prior to discharge. She states that she has no questions. She has been attempting at breast and pumping sometimes, and then supplementing with formula. Infant has had appropriate feedings in the last 24 hours meets the outcomes for weight, output, blood sugar and jaundice at this time. Reinforced understanding of milk production, transition of milk, signs of adequate intake, transition of stool, prevention/relief of engorgement, plugged ducts, mastitis, responsive watching for feeding cues, the different methods of stimulating infant to breastfeed 1-3 hours after the start of the last feeding, community resources, and when to call a provider using the resource of the feeding sheet along with the mom and baby guide. Mother voiced understanding of the information shared, is confident to continue effectively her at home, when to call for assistance, denies any additional assistance or education at this time. Reported to the Primary RN.
== END 2024-04-04 17:35 | disposition home or self-care (01) | DRG 807 ==
LOC: ANHLDR 19:34 → ANHOBPP 04-02 22:54 → ANHOB2 04-03 08:21
PROVIDERS: Admitting Provider Obstetrics & Gynecology; Visit Provider Obstetrics & Gynecology
DX: O75.2 Pyrexia during labor, not elsewhere classified (principal); Z37.0 Single live birth; O70.0 First degree perineal laceration during delivery; O99.334 Smoking (tobacco) complicating childbirth; F17.290 Nicotine dependence, other tobacco product, uncomplicated; O42.92 Full-term premature rupture of membranes, unspecified as to length of time between rupture and onset of labor; O76 Abnormality in fetal heart rate and rhythm complicating labor and delivery; O77.0 Labor and delivery complicated by meconium in amniotic fluid; O69.1XX0 Labor and delivery complicated by cord around neck, with compression, not applicable or unspecified; Z3A.40 40 weeks gestation of pregnancy
CPT/HCPCS: 36415; 80307; 84112; 85014; 85018; 85025; 86592; 86703; 86850; 86900; 86901; 88307; A9270; G0432; J0290; J1200; J2003; J2371; J2405; J2590; J2795; J3010; J7120; J7121